=== PATIENT | male | born 1995 | race African-American/Black ===

== ENCOUNTER 2024-04-05 09:41 | Emergency (ER) | payer OTHER ==
[~2024-04-05] VITALS: Ht 165.1 cm; Wt 138.0 kg
[~2024-04-05 09:41] MED LIST: CLON0.5T2 PO; DEXT10TA4 PO; HYDR50CA PO; LITH150C PO; LITH600C PO; RISP4 PO
[2024-04-05 09:42] VITALS: BP 105/63; TEMP 98.7; O2SAT 98
[2024-04-05 09:43] VITALS: PULSE 99; RESP 18; O2SAT 98
== END 2024-04-05 11:04 | disposition home or self-care (01) ==
LOC: ER 09:41
DX: S50.312A Abrasion of left elbow, initial encounter (principal); I10 Essential (primary) hypertension; Z79.899 Other long term (current) drug therapy; V03.90XA Pedestrian on foot injured in collision with car, pick-up truck or van, unspecified whether traffic or nontraffic accident, initial encounter; Y93.89 Activity, other specified; Y92.89 Other specified places as the place of occurrence of the external cause; Y99.8 Other external cause status
CPT/HCPCS: 99281